=== PATIENT | female | born 1970 | race Caucasian/White ===

== ENCOUNTER 2023-01-26 11:12 | Emergency (ER) | payer MEDICAID, MEDICARE ==
[2023-01-26 11:35] VITALS: BP 148/94
--- NOTE | 2023-01-26 12:39 | ED Physician Documentation ---
History of Present Illness - Stated complaint Stated Complaint: PX IN FEET - Chief complaint Chief Complaint: Ext Problem - Additonal information Additional information: 52-year-old female presents emergency department for evaluation of bilateral foot pain. States that about 6 weeks ago she stepped on a large stone on her driveway causing immediate pain at the arch of the left foot. As she stepped incorrectly this caused her to also fall wrong on the right foot. Since then she has had persistent pain at the arch of the left foot and feels a subtle area of swelling. Pain is persisted throughout the day and does not improve with rest. She is now also noticed a swelling on the right lateral foot. She does have a history of remote injury to this bone. Patient is using Tylenol/Motrin with minimal relief of symptoms. Nondiabetic. No fevers. Review of Systems Skin: reports: Reviewed and negative Musculoskeletal: reports: Extremity pain PD PAST MEDICAL HISTORY - Present Medications Home Medications: Ambulatory Orders Medication Instructions Recorded Confirmed Oxycodone HCl [Roxybond] 5 mg PO BID PRN #10 tab 01/26/23 - Allergies Allergies/Adverse Reactions: Allergies Allergy/AdvReac Type Severity Reaction Status Date / Time acetaminophen [From Vicodin] AdvReac Emesis Verified 01/26/23 11:32 hydrocodone [From Vicodin] AdvReac Emesis Verified 01/26/23 11:32 PD ED PE EXPANDED - Extremities Extremities: Right foot (Tenderness at the base of the right fifth metatarsal. No obvious swelling or ecchymosis. She does have a flat nevus at the base of the foot with irregular shape and border.), Left foot (Tenderness of the arch of the left foot just distal to the heel. Small firm swelling is noted. Full range of motion of the ankle. No ecchymosis or obvious skin lesions) Results - Vitals Vitals: Vital Signs - 24 hr 01/26/23 11:30 Temperature 36.8 C Heart Rate 82 Respiratory 20 Rate Blood Pressure 148/94 H O2 Saturation 99 Oxygen O2 Source Room air - Rads (name of study) bilateral foot xr Relevant Findings:: Final report received (Tiny right plantar calcaneal spur. No fracture throughout the exam.) PD Medical Decision Making - ED course Complexity details: reviewed results, re-evaluated patient ED course: 52-year-old female presents presents department for evaluation of several weeks of bilateral foot pain that occurred after she stepped on a hard round stone with her left foot and then landed awkwardly on her right foot. Most of the pain is in the left foot especially at the end of the day. Set the arch near the heel. No obvious deformity though she does feel subtle swelling. She has a history of remote fracture in the right foot along the fifth metatarsal and has had some pain to the proximal metatarsal since. Bilateral foot x-rays reveal no acute or occult fractures. There is an inciden uli finding made of a right heel spur. Clinically I suspect the patient has Planter fasciitis of the left foot which is a source of most of her pain. We did tape the foot in an X fashion to support the arch. She is encouraged to continue Tylenol and ibuprofen though limited prescription of oxycodone has been sent to the patient's preferred pharmacy. She is also encouraged to follow closely with podiatry in the long-term for follow-up. Clinically there is nothing to suggest occult infection. The usual emergent return precautions worsening symptoms was discussed. Departure - Departure Disposition: 01 Home, Self Care Clinical Impression: Calcaneal spur, right foot, Plantar fasciitis of left foot, Foot pain, bilateral Condition: Stable Record reviewed to determine appropriate education?: Yes Prescriptions: Oxycodone HCl [Roxybond] 5 mg PO BID PRN #10 tab PRN Reason: Pain >8 Comments: Katelynn, as discussed at the bedside I suspect that you have plantar fasciitis in your left foot. I encourage you to use the taping as shown over the next week to see if it improves your pain over time. The x-ray of both your feet however showed no broken bones especially on the right foot where we were concerned. You do have a heel spur of that right foot. Given the chronicity of your pain I think is important you to follow-up closely by a foot doctor or shot tube machine tender. Erika Leigh is a local shot tube machine tender here in [place] that may be able to see you in follow-up. I recommend that you continue taking the ibuprofen and Tylenol. For more severe pain especially at night I have written a prescription for limited amount of oxycodone and sent it to [facility] in [place]. Forms: PCP List
--- NOTE | 2023-01-26 13:46 | XRAY Report ---
PROCEDURE: Foot 3 View BILAT INDICATIONS: Bilateral foot pain TECHNIQUE: 3 views of the foot were acquired. COMPARISON: None. FINDINGS: Bones: No fractures or dislocations. No suspicious bony lesions. Tiny right plantar calcaneal spur present. No calcaneal spur on the left. Soft tissues: No suspicious soft tissue calcifications or masses. IMPRESSION: Tiny right plantar calcaneal spur. No fracture throughout the exam Reviewed by: Luis Alberto Mckinney MD on 01/26/2023 12:44 PM [facility] Approved by: Luis Alberto Mckinney MD on 01/26/2023 12:44 PM [facility] Station ID: [id number]
== END 2023-01-26 14:14 | disposition home or self-care (01) ==
LOC: ED 11:12
DX: M77.31 Calcaneal spur, right foot (principal); M72.2 Plantar fascial fibromatosis
CPT/HCPCS: 99283

== ENCOUNTER 2023-05-06 12:41 | Emergency (ER) | payer MEDICAID ==
--- NOTE | 2023-05-06 13:06 | ED Physician Documentation ---
PD HPI Fall - Stated complaint Stated Complaint: GLF - History obtained from History obtained from: Patient - Additional information Additional information: Patient is a 53-year-old female who had a trip and fall on a stair around 830 this morning and fell. She denies hitting her head. There is no LOC. She is not on a blood thinner. She reports pain primarily to the right shoulder, right elbow, right hand and left foot. She has been able to ambulate. Denies chest pain or shortness of air. Review of Systems Constitutional: denies: Fever Cardiac: denies: Chest pain / pressure Respiratory: denies: Dyspnea Musculoskeletal: reports: Extremity pain Neurologic: denies: Head injury PD PAST MEDICAL HISTORY - Past Surgical History Past Surgical History: No - Present Medications Home Medications: Ambulatory Orders Medication Instructions Recorded Confirmed No Known Home Medications 05/06/23 05/06/23 - Allergies Allergies/Adverse Reactions: Allergies Allergy/AdvReac Type Severity Reaction Status Date / Time acetaminophen [From Vicodin] AdvReac Emesis Verified 05/06/23 13:11 hydrocodone [From Vicodin] AdvReac Emesis Verified 05/06/23 13:11 - Social History Does the pt smoke?: No Smoking Status: Never smoker Does the pt drink ETOH?: No Does the pt have substance abuse?: No - Immunizations Immunizations are current?: Yes PD ED PE NORMAL - General General: Alert and oriented X 3, No acute distress, Well developed/nourished - HEENT HEENT: Atraumatic, Moist mucous membranes, Pharynx benign - Neck Neck: Supple, no meningeal sign, No bony TTP, C-Spine cleared by NEXUS criteria - Cardiac Cardiac: RRR, Strong equal pulses - Respiratory Respiratory: No respiratory distress, Clear bilaterally - Back Back: No spinal TTP - Extremities Extremities: Other (Pain on range of motion to right shoulder although she is able to abduct past 90 degrees, contusion to right elbow and right hand and left foot.) - Neuro Neuro: Alert and oriented X 3, No motor deficit, No sensory deficit, Normal speech Results - Vitals Vitals: Vital Signs - 24 hr 05/06/23 05/06/23 12:55 15:01 Temperature 36.3 C L 36.8 C Heart Rate 77 72 Respiratory 16 16 Rate Blood Pressure 165/101 H 132/87 H O2 Saturation 100 97 Oxygen O2 Source Room air PD Medical Decision Making - ED course Complexity details: reviewed results, re-evaluated patient, d/w patient ED course: Patient is a 53-year-old female presenting for evaluation after a trip and fall today with no head injury. X-rays were obtained without signs of fracture or dislocation and she is ambulatory here. Patient counseled on continued supportive care as well as concerning symptoms to return for. Departure - Departure Disposition: 01 Home, Self Care Clinical Impression: Fall, Contusion of left foot, Right arm pain Condition: Stable Instructions: ED Sprain Foot, ED Shoulder Pain UKO Comments: The x-rays of your right shoulder, right elbow, right hand and left foot do not show any broken bones or dislocations. You do have some bruising. Please continue with anti-inflammatory medication, ice, rest. I would recommend follow-up with your primary care provider if your symptoms or not improving. Return to the ER with any concerning symptoms. Forms: Activity restrictions Discharge Date/Time: 05/06/23 15:01
--- NOTE | 2023-05-06 14:16 | XRAY Report ---
PROCEDURE: Elbow 3 View RT INDICATIONS: fall TECHNIQUE: 3 views of the elbow were acquired. Positioning is suboptimal COMPARISON: None FINDINGS: Bones: No fractures or dislocations. No suspicious bony lesions. Soft tissues: Soft tissue swelling present. IMPRESSION: Limited evaluation related to patient positioning. No evidence of displaced fracture Reviewed by: Luis Alberto Mckinney MD on 05/06/2023 1:15 PM [place] Approved by: Luis Alberto Mckinney MD on 05/06/2023 1:15 PM [place] Station ID: [id number]
--- NOTE | 2023-05-06 14:33 | XRAY Report ---
PROCEDURE: Foot 3 View LT INDICATIONS: fall TECHNIQUE: 3 views of the foot were obtained. COMPARISON: None FINDINGS: Bones: No fractures or dislocations. No suspicious bony lesions. Soft tissues: Lateral soft tissue swelling. No radiopaque foreign body. IMPRESSION: Soft tissue swelling without fracture or foreign body Reviewed by: Luis Alberto Mckinney MD on 05/06/2023 1:31 PM [place] Approved by: Luis Alberto Mckinney MD on 05/06/2023 1:31 PM [place] Station ID: [id number]
--- NOTE | 2023-05-06 14:35 | XRAY Report ---
PROCEDURE: Hand 3 View RT INDICATIONS: fall TECHNIQUE: 3 view(s) of the hand(s) acquired. COMPARISON: None FINDINGS: Bones: No fractures or dislocations. No suspicious bony lesions. Soft tissues: No suspicious soft tissue calcifications. IMPRESSION: Unremarkable hand radiographs Reviewed by: Luis Alberto Mckinney MD on 05/06/2023 1:33 PM [place] Approved by: Luis Alberto Mckinney MD on 05/06/2023 1:33 PM [place] Station ID: [id number]
--- NOTE | 2023-05-06 14:41 | XRAY Report ---
PROCEDURE: Shoulder 3 View RT INDICATIONS: fall TECHNIQUE: 3 views of the shoulder were acquired. COMPARISON: None FINDINGS: Bones: No fractures or dislocations. No suspicious bony lesions. Visualized ribs appear intact. Soft tissues: No suspicious soft tissue calcifications. IMPRESSION: Unremarkable shoulder radiographs Reviewed by: Luis Alberto Mckinney MD on 05/06/2023 1:39 PM [place] Approved by: Luis Alberto Mckinney MD on 05/06/2023 1:39 PM [facility] Station ID: [id number]
[2023-05-06 15:11] VITALS: BP 132/87; O2SAT 97
== END 2023-05-06 15:01 | disposition home or self-care (01) ==
LOC: ED 12:41
DX: S90.32XA Contusion of left foot, initial encounter (principal); M79.601 Pain in right arm; W01.0XXA Fall on same level from slipping, tripping and stumbling without subsequent striking against object, initial encounter
CPT/HCPCS: 99283; 99284

== ENCOUNTER 2023-05-07 09:40 | Emergency (ER) | payer MEDICAID ==
--- NOTE | 2023-05-07 10:44 | XRAY Report ---
PROCEDURE: Wrist 3 View RT INDICATIONS: pain/swelling TECHNIQUE: 3 views of the wrist were acquired. COMPARISON: None. FINDINGS: Bones: Mild thumb base degenerative changes. No displaced fracture or dislocation. Soft tissues: No suspicious calcifications. IMPRESSION: No displaced fracture. No dislocation. If there is high concern for occult injury, consider repeat ra diography or cross-sectional imaging. Reviewed by: Calvin Myers MD on 05/07/2023 10:42 AM [facility] Approved by: Calvin Myers MD on 05/07/2023 10:42 AM [facility] Station ID: [id number]
--- NOTE | 2023-05-07 11:21 | ED Physician Documentation ---
PD HPI UPPER EXT INJURY - Stated complaint Stated Complaint: RT WRIST PX,SWELLING - Chief complaint Chief Complaint: Trauma Ext - History obtained from History obtained from: Patient - Additonal information Additional information: The patient comes to the emergency department chief complaint of right wrist pain after a fall yesterday. She states that she had a mechanical fall and fell onto her elbow but thinks that she either twisted or hit her wrist in the process. She was seen yesterday in the walk-in clinic and had elbow and hand x- rays done which were negative. She is concerned because she never got an x-ray of the wrist and her wrist started to hurt last night. No other complaints at this time. PD PAST MEDICAL HISTORY - Past Medical History Past Medical History: Yes Cardiovascular: None Respiratory: None Neuro: None Endocrine/Autoimmune: None GI: None [employer]: Endometriosis : Kidney stones HEENT: None Psych: None Musculoskeletal: None Derm: None - Past Surgical History Past Surgical History: No General: Appendectomy /[employer]: Other - Present Medications Home Medications: Ambulatory Orders Medication Instructions Recorded Confirmed HYDROcod/ACETAM 5/325 [[place] 5/325] 1 - 2 tablet PO Q6H PRN #7 tablet 05/07/23 Ondansetron Odt [Zofran] 4 mg TL Q6H PRN #10 tablet 05/07/23 - Allergies Allergies/Adverse Reactions: Allergies Allergy/AdvReac Type Severity Reaction Status Date / Time acetaminophen [From Vicodin] AdvReac Emesis Verified 05/07/23 09:52 hydrocodone [From Vicodin] AdvReac Emesis Verified 05/07/23 09:52 - Social History Does the pt smoke?: No Smoking Status: Former smoker Does the pt drink ETOH?: No Does the pt have substance abuse?: Yes Substance Use and Type: Marijuana - Immunizations Immunizations are current?: Yes PD ED PE NORMAL - Vitals Vital signs reviewed: Yes - General General: Alert and oriented X 3, No acute distress, Well developed/nourished - HEENT HEENT: Atraumatic, EOMI, Moist mucous membranes - Neck Neck: Supple, no meningeal sign - Cardiac Cardiac: Strong equal pulses - Respiratory Respiratory: No respiratory distress - Derm Derm: Normal color, Warm and dry, No rash - Extremities Extremities: No deformity, Other (Mild diffuse edema right breast with tenderness over the flexor and radial aspect) - Neuro Neuro: Alert and oriented X 3 - Psych Psych: Normal mood, Normal affect Results - Vitals Vitals: Vital Signs - 24 hr 05/07/23 09:52 Temperature 37.2 C Heart Rate 77 Respiratory 16 Rate Blood Pressure 126/86 H O2 Saturation 100 Oxygen O2 Source Room air - Rads (name of study) Right wrist x-ray series Relevant Findings:: Final report received, See rad report (Negative) PD Medical Decision Making - ED course Complexity details: reviewed results, re-evaluated patient, considered differential, d/w patient ED course: The patient's right wrist x-ray series was negative. I offered her a Velcro wrist splint which she did accept. We have discussed symptomatic management at home for her wrist, as well as usual indications for return. Departure - Departure Disposition: Home, Self Care Clinical Impression: Injury of wrist Qualifiers: Encounter type: initial encounter Laterality: right Qualified Code(s): S69.91XA - Unspecified injury of right wrist, hand and finger(s), initial encounter Condition: Stable Instructions: ED Sprain Wrist Prescriptions: HYDROcod/ACETAM 5/325 [[place] 5/325] 1 - 2 tablet PO Q6H PRN #7 tablet PRN Reason: Pain Ondansetron Odt [Zofran] 4 mg TL Q6H PRN #10 tablet PRN Reason: Nausea / Vomiting Comments: Your x-ray series looks good. You have been placed in a Velcro wrist splint for support. It is not obligatory that you wear this, and you can certainly take it off for shower or discontinue use when you feel like your wrist is doing better. As far as managing the pain at home, you may use ibuprofen as needed, and you may augment with the Vicodin that is been prescribed. You appear to have a history on record of nausea with narcotic pain medication, which does not represent an allergy. However, it is a common side effect and as such, along with the prescription for the Vicodin, a prescription for nausea medicine has also been made. These been electronically transmitted to the [facility] pharmacy in [place] at your request.
[2023-05-07 11:39] VITALS: BP 142/81; O2SAT 99
== END 2023-05-07 11:37 | disposition home or self-care (01) ==
LOC: ED 09:40
DX: S69.91XA Unspecified injury of right wrist, hand and finger(s), initial encounter (principal); W19.XXXA Unspecified fall, initial encounter; Z87.891 Personal history of nicotine dependence
CPT/HCPCS: 99283